=== PATIENT | male | born 1985 | race Hispanic/Latino ===

== ENCOUNTER 2016-08-28 13:11 | Emergency (ER) | payer SELFPAY ==
[2016-08-28] MEDS ORDERED: SUBLIMAZE IV ONE ×2 (13:42→14:45)
[2016-08-28 14:09] LABS: Bacteria,Urine 1+ /HPF (Negative); Bilirubin,Urine NEG (Negative); Blood,Urine LG (Negative); Ketones,Urine NEG (Negative); Leukocyte Esterase,Urine NEG (Negative); Mucus,Urine FEW /HPF; Nitrite,Urine NEG (Negative); Protein,Urine <15 mg/dL mg/dL (Negative); Urobilinogen,Urine < 2.0 mg/dL (<2.0)
[2016-08-28 14:19] LABS: Basophils % (Auto) 0.7 % (0.0-1.8); Eosinophils % (Auto) 5.8 % (0.0-4.3); Hematocrit 44.7 % (35.5-45.6); Mean Corpuscular HGB Conc 34 % (32-34); Mean Corpuscular Hemoglobin 31 pg (28-32); Mean Corpuscular Volume 92 fl (84-94); Platelet Count 215 K/mm3 (140-440); Red Blood Count 4.85 M/mm3 (3.65-5.03); Red Cell Distribution Width 13.4 % (13.2-15.2); White Blood Count 6.8 K/mm3 (4.5-11.0)
[2016-08-28 14:27] LABS: INR 1.05 (0.87-1.13)
[2016-08-28 14:28] LABS: Partial Thromboplastin Time 26.8 Sec. (24.2-36.6)
[2016-08-28 14:38] LABS: Anion Gap 18 mmol/L; BUN/Creatinine Ratio 23.33; Blood Urea Nitrogen 21 mg/dL (9-20); Calcium 8.9 mg/dL (8.4-10.2); Carbon Dioxide 26 mmol/L (22-30); Chloride 98.2 mmol/L (98-107); Glucose 88 mg/dL (75-100); Potassium 4.7 mmol/L (3.6-5.0); Sodium 137 mmol/L (137-145)
--- NOTE | 2016-08-28 14:52 | Cat Scan Report ---
CT ABDOMEN AND PELVIS WITHOUT CONTRAST INDICATION: Flank pain. COMPARISON: None similar at this institution. FINDINGS: Noncontrast abdomen and pelvis CT performed. LUNG BASES: Right hemidiaphragm slightly elevated. Nonspecific distal esophageal wall thickening, not excluded for gastroesophageal reflux and/or hiatal hernia, amongst others. ABDOMEN: Please note that sensitivity to detect small visceral lesions is limited due to the absence of intravenous or oral contrast. However, grossly unremarkable unenhanced liver, spleen, gallbladder, pancreas, adrenals, non-aneurysmal abdominal aorta and the IVC. Left hepatic lobe tip wraps around the spleen in the left upper quadrant. No ascites or size significant adenopathy. Few small, subcentimeter, scattered mesenteric and retroperitoneal lymph nodes noted. Nonopacified GI tract evaluation limited, though grossly nonobstructive. Normal appendix. Mild to moderate colonic stool/possible constipation. Specifically, the kidneys are non-hydronephrotic with preserved contours. A nonobstructing 2 mm right lower renal pole calculus, axial image 169, series 2 noted as also a 1 mm nonobstructing interpolar calculus, axial image 149. Approximately 1.8 cm left lower renal cortical hyperdense/hemorrhagic cyst anteriorly also seen, axial image 164. PELVIS: Moderate to large rectosigmoid stool. Left seminal vesicle calcifications. Small pelvic phleboliths. Urinary bladder suboptimally distended and assessed. No free fluid or size significant adenopathy. No focal aggressive osseous lesions. CONCLUSION: No acute CT abnormality with few incidental findings, including constipation, nonobstructive right nephrolithiasis and a hemorrhagic left renal cyst, as above. Thank you for the opportunity to participate in this patient's care.
[2016-08-28 15:29] VITALS: BP 136/90
[2016-08-28] MEDS ORDERED: DILAUDID IV ONE (16:31)
--- NOTE | 2016-08-28 16:37 | Emergency Department Report ---
HPI - General Chief Complaint: Urogenital-Male Time Seen by Provider: 08/28/16 14:23 - HPI HPI: The patient is a 31-year-old male who presents for evaluation of flank pain. The patient reports 2 days of recurrence of bilateral flank pain, constant since onset, 10/10 in severity, throbbing in quality, and radiating into the lower abdomen. He reports associated hematuria. The patient denies fever, chills, night sweats, diarrhea, blood in the stool, dark tarry stool, dysuria, genital discharge, inability to pass flatus. ED Past Medical Hx - Past Medical History Previous Medical History?: Yes Hx Seizures: Yes Hx Kidney Stones: Yes (chronic) Additional medical history: schizophrenia, PTSD - Surgical History Past Surgical History?: Yes Additional Surgical History: kidney stents, inverted sternum as child, hernia repair. - Social History Smoking Status: Current Every Day Smoker Substance Use Type: Marijuana, Methamphetamines - Medications Home Medications: Home Medications Medication Instructions Recorded Confirmed Last Taken Type HYDROcodone/APAP 7.5-325 [[place] 1 each PO Q8HR PRN #10 tablet 08/28/16 Unknown Rx 7.5-325 mg TAB] Tamsulosin [Flomax] 0.4 mg PO QDAY #20 cap 08/28/16 Unknown Rx ED Review of Systems ROS: Stated complaint: POSS KIDNEY STONES Other details as noted in HPI Constitutional: denies: fever ENT: denies: throat or neck pain Respiratory: denies: cough, shortness of breath Cardiovascular: denies: chest pain Endocrine: denies unexplained weight loss or gain Gastrointestinal: reports abdominal pain, nausea Genitourinary: reports hematuria and flank pain Musculoskeletal: denies: leg swelling Skin: denies: rash Neurological: denies: headache Hematological/Lymphatic: denies: easy bleeding or easy bruising Psych: denies sadness or hopelessness Physical Exam - Physical Exam Vital Signs: Vital Signs 08/28/16 08/28/16 08/28/16 13:18 13:30 13:33 Temperature 98.6 F Pulse Rate 118 H 96 H Respiratory 20 Rate Blood Pressure 123/75 142/83 Blood Pressure [Left] O2 Sat by Pulse 97 97 Oximetry 08/28/16 08/28/16 08/28/16 13:48 14:00 14:30 Temperature Pulse Rate Respiratory 22 Rate Blood Pressure 127/76 127/75 Blood Pressure [Left] O2 Sat by Pulse 98 91 Oximetry 08/28/16 08/28/16 14:50 15:28 Temperature Pulse Rate 101 H Respiratory 20 16 Rate Blood Pressure Blood Pressure 136/90 [Left] O2 Sat by Pulse 98 Oximetry Physical Exam: General: well-nourished, well-developed, no acute distress Head: Normocephalic, atraumatic Eyes: normal sclera ENT: Mucous membranes are pink and moist Neck: trachea midline, neck supple, No neck stiffness, no cervical adenopathy Respiratory: Breath sounds equal bilaterally, no wheezing, rales, or rhonchi Cardio: S1 and S2 present, no murmurs, rubs, gallops, capillary refill is brisk Abdomen: Normoactive bowel sounds, soft abdomen, no rigidity, no guarding or rebound tenderness Chest WALL/Back: No tenderness to palpation of the chest wall, bilateral CVA tenderness with percussion is present Musc: No pitting edema Skin: No rash Neuro: no facial drooping, normal speech Psych: Normal affect ED Course Vital Signs 08/28/16 08/28/16 08/28/16 13:18 13:30 13:33 Temperature 98.6 F Pulse Rate 118 H 96 H Respiratory 20 Rate Blood Pressure 123/75 142/83 Blood Pressure [Left] O2 Sat by Pulse 97 97 Oximetry 08/28/16 08/28/16 08/28/16 13:48 14:00 14:30 Temperature Pulse Rate Respiratory 22 Rate Blood Pressure 127/76 127/75 Blood Pressure [Left] O2 Sat by Pulse 98 91 Oximetry 08/28/16 08/28/16 14:50 15:28 Temperature Pulse Rate 101 H Respiratory 20 16 Rate Blood Pressure Blood Pressure 136/90 [Left] O2 Sat by Pulse 98 Oximetry ED Medical Decision Making - Lab Data Result diagrams: 08/28/16 14:04 08/28/16 14:04 - Medical Decision Making The patient was seen and examined by myself. The patient is placed on a director of cardiac cath lab and continuous pulse ox. On initial evaluation, the patient was found to be in no distress. Evaluation orders are placed. The patient is given an IV dose of fentanyl And Toradol for his pain. Lab results were non- concerning including WBC, hemoglobin, hematocrit, electrolytes, renal function, and urinalysis. CT scan abdomen and pelvis reveals right nephrolithiasis and chronic left renal cyst. The patient was reevaluated and reported that their symptoms were markedly improved at the second dose of IV analgesic. The patient is stable for discharge with outpatient follow-up. The patient is given follow-up and return instructions. The patient expressed understanding and agreed with the plan. The patient is discharged in stable condition. Critical care attestation.: If time is entered above; I have spent that time in minutes in the direct care of this critically ill patient, excluding procedure time. ED Disposition Clinical Impression: Right nephrolithiasis, Renal cyst, acquired, left, Acute flank pain Disposition: DISCHARGED TO HOME OR SELFCARE Is pt being admited?: No Does the pt Need Aspirin: No Condition: Stable Instructions: Kidney Stones (ED) Prescriptions: HYDROcodone/APAP 7.5-325 [[place] 7.5-325 mg TAB] 1 each PO Q8HR PRN #10 tablet PRN Reason: Pain Tamsulosin [Flomax] 0.4 mg PO QDAY #20 cap Referrals: PRIMARY CARE, [Primary Care Provider] - 3-5 Days Time of Disposition: 16:34
== END 2016-08-28 18:28 | disposition home or self-care (01) ==
LOC: ED 13:11
DX: N20.0 Calculus of kidney (principal); N28.1 Cyst of kidney, acquired; R10.9 Unspecified abdominal pain; R56.9 Unspecified convulsions; F15.10 Other stimulant abuse, uncomplicated; F12.10 Cannabis abuse, uncomplicated; F17.200 Nicotine dependence, unspecified, uncomplicated
CPT/HCPCS: 36415; 74176; 80048; 81001; 85025; 85610; 85730; 96374; 96375; 96376; 99285; J1170; J3010

== ENCOUNTER 2016-08-31 12:24 | Emergency (ER) | payer SELFPAY ==
[2016-08-31 13:38] LABS: Basophils % (Auto) 0.8 % (0.0-1.8); Eosinophils % (Auto) 6.4 % (0.0-4.3); Hematocrit 44.9 % (35.5-45.6); Hemoglobin 15.1 gm/dl (11.8-15.2); Mean Corpuscular HGB Conc 34 % (32-34); Mean Corpuscular Hemoglobin 31 pg (28-32); Mean Corpuscular Volume 92 fl (84-94); Platelet Count 207 K/mm3 (140-440); Red Blood Count 4.87 M/mm3 (3.65-5.03); Red Cell Distribution Width 13.1 % (13.2-15.2); White Blood Count 5.7 K/mm3 (4.5-11.0)
[2016-08-31 13:46] LABS: Alanine Aminotransferase 19 units/L (7-56); Albumin/Globulin Ratio 1.5 %; Alkaline Phosphatase 54 units/L (35-129); Anion Gap 16 mmol/L; BUN/Creatinine Ratio 21.42; Bilirubin,Total 0.5 mg/dL (0.1-1.2); Blood Urea Nitrogen 15 mg/dL (9-20); Calcium 8.6 mg/dL (8.4-10.2); Carbon Dioxide 26 mmol/L (22-30); Chloride 100.2 mmol/L (98-107); Glucose 82 mg/dL (75-100); Lipase 16 units/L (13-60); Potassium 4.5 mmol/L (3.6-5.0); Sodium 138 mmol/L (137-145); Total Protein 6.7 g/dL (6.3-8.2)
[2016-08-31 13:53] LABS: Bilirubin,Urine NEG (Negative); Blood,Urine LG (Negative); Ketones,Urine TR mg/dL (Negative); Leukocyte Esterase,Urine NEG (Negative); Mucus,Urine FEW /HPF; Nitrite,Urine NEG (Negative); Urobilinogen,Urine < 2.0 mg/dL (<2.0); WBC,Urine < 1.0 /HPF (0.0-6.0)
[2016-08-31 13:56] LABS: RBC,Urine > 182.0 /HPF (0.0-6.0)
[2016-08-31 16:14] VITALS: BP 131/85
--- NOTE | 2016-08-31 16:29 | Cat Scan Report ---
CT ABDOMEN AND PELVIS WITHOUT CONTRAST INDICATION: Right flank pain, extending to the groin. COMPARISON: 08/28/2016 FINDINGS: Noncontrast abdomen and pelvis CT performed. LUNG BASES: Nonspecific distal esophageal wall thickening, not excluded for gastroesophageal reflux and/or hiatal hernia, amongst others. ABDOMEN: Please note that sensitivity to detect small visceral lesions is limited due to the absence of intravenous or oral contrast. Stable nonobstructing 1 mm right interpolar and a 2 mm right lower renal calculi as also approximately 1.8 cm left lower renal cortical hyperdense/hemorrhagic cyst anteriorly. Left hepatic lobe tip again wraps around the spleen in the left upper quadrant. Right hepatic lobe approximately 19.3 cm in midclavicular length. Otherwise stable abdominal solid organs. Overall lesser colonic stool. Normal appendix. PELVIS: Significant interval clearing of rectosigmoid stool. Slight nonspecific rectal exaggerated wall prominence/thickening with subtle surrounding fat stranding not excluded, axial series 2, images 318-348, amongst others. Left seminal vesicle calcifications, small right hemipelvic phlebolith and urinary bladder appear stable. No free fluid or significant adenopathy. No focal aggressive osseous lesions. CONCLUSION: 1. Significant interval clearing of colonic stool/constipation. Subtle proctitis however not entirely excluded in an appropriate setting. 2. Stable nonobstructing right renal calculi, hemorrhagic left renal cyst and prominent liver, amongst others, as described. Thank you for the opportunity to participate in this patient's care.
[2016-08-31] MEDS ORDERED: TORADOL ONE (16:47)
[2016-08-31] MEDS ORDERED: TORADOL IM ONE (16:53)
--- NOTE | 2016-08-31 16:53 | Emergency Department Report ---
ED Abdominal Pain HPI - General Chief Complaint: Abdominal Pain Stated Complaint: POSS KIDNEY STONES Time Seen by Provider: 08/31/16 15:58 Source: patient Mode of arrival: Ambulatory Limitations: No Limitations - History of Present Illness MD Complaint: abdominal pain -: Gradual, days(s) Location: suprapubic, R flank Radiation: none Migration to: no migration Severity: mild Severity scale (0 -10): 1 Quality: aching Consistency: intermittent Improves With: nothing Worsens With: nothing Associated Symptoms: denies other symptoms - Related Data Previous Rx's Medication Instructions Recorded Last Taken Type HYDROcodone/APAP 7.5-325 [[place] 1 each PO Q8HR PRN #10 tablet 08/28/16 Unknown Rx 7.5-325 mg TAB] Tamsulosin [Flomax] 0.4 mg PO QDAY #20 cap 08/28/16 Unknown Rx Allergies Allergy/AdvReac Type Severity Reaction Status Date / Time Fish Containing Products Allergy Shortness Verified 08/28/16 13:40 of Breath haloperidol [From Haldol] Allergy Angioedema Verified 08/28/16 13:40 haloperidol lactate Allergy Angioedema Verified 08/28/16 13:40 [From Haldol] lorazepam [From Ativan] AdvReac Unknown Verified 08/28/16 13:40 morphine AdvReac Unknown Verified 08/28/16 13:40 ED Review of Systems ROS: Stated complaint: POSS KIDNEY STONES Other details as noted in HPI Comment: All other systems reviewed and negative ED Past Medical Hx - Past Medical History Hx Seizures: Yes Hx Kidney Stones: Yes (chronic) Additional medical history: schizophrenia, PTSD - Surgical History Additional Surgical History: kidney stents, inverted sternum as child, hernia repair. - Social History Smoking Status: Current Every Day Smoker Substance Use Type: None - Medications Home Medications: Home Medications Medication Instructions Recorded Confirmed Last Taken Type HYDROcodone/APAP 7.5-325 [[place] 1 each PO Q8HR PRN #10 tablet 08/28/16 Unknown Rx 7.5-325 mg TAB] Tamsulosin [Flomax] 0.4 mg PO QDAY #20 cap 08/28/16 Unknown Rx ED Physical Exam - Other Other exam information: GENERAL: Patient in no acute distress HEAD: Normocephalic, atraumatic EYES: PERRLA, EOM intact, no scleral icterus, no papilledema, no conjunctival hemorrhage, visual hernandez and acuity wnl, NOSE: No tenderness, discharge, sinus tenderness MOUTH: No erythema, bleeding, exudate HEART: Regular rate and rhythm, no murmur, S1-S2 are auscultated, pulses are symmetric LUNGS: No wheezing, rales, rhonchi, bilateral breath sounds ABDOMEN: Normal bowel sounds, no tenderness, no rebound, no guarding, no masses , no CVA tenderness MUSCULOSKELETAL: Normal joint range of motion, no redness, no swelling, no tenderness NEUROLOGIC: GCS 15, Alert and Oriented x3, Cranial nerves intact, normal sensation, normal strength, normal gait, no cerebellar deficit PSYCHIATRIC: No homicidal or suicidal ideation, no anxiety, no depression, no hallucinations SKIN: Skin is warm and dry, no wounds, no rashes GENITOURINARY: Male: No rashes, ulcers, discharge, no scrotal masses, no hernia ED Course Vital Signs 08/31/16 08/31/16 08/31/16 12:51 15:32 15:40 Temperature 98.1 F Pulse Rate 112 H Respiratory 20 Rate Blood Pressure 137/88 131/85 O2 Sat by Pulse 100 97 Oximetry 08/31/16 15:46 Temperature Pulse Rate 87 Respiratory 24 Rate Blood Pressure 131/85 O2 Sat by Pulse 96 Oximetry ED Medical Decision Making - Lab Data Result diagrams: 08/31/16 13:02 08/31/16 13:02 - Radiology Data Radiology results: report reviewed - Medical Decision Making Patient comfortable. Updated with results. Plan discharge with outpatient follow-up. Patient agrees with plan and will return if symptoms worsen. Critical care attestation.: If time is entered above; I have spent that time in minutes in the direct care of this critically ill patient, excluding procedure time. ED Disposition Clinical Impression: Abdominal pain Qualifiers: Abdominal location: unspecified location Qualified Code(s): R10.9 - Unspecified abdominal pain Disposition: DISCHARGED TO HOME OR SELFCARE Is pt being admited?: No Condition: Stable Instructions: Abdominal Pain (ED) Referrals: PRIMARY CARE, [Primary Care Provider] - 2-3 Days JYOTI MARY MD [Staff Physician] - 2-3 Days Time of Disposition: 16:52
== END 2016-08-31 17:30 | disposition home or self-care (01) ==
LOC: ED 12:24
DX: R10.30 Lower abdominal pain, unspecified (principal); R56.9 Unspecified convulsions; F20.9 Schizophrenia, unspecified; F43.10 Post-traumatic stress disorder, unspecified; F17.200 Nicotine dependence, unspecified, uncomplicated
CPT/HCPCS: 36415; 74176; 80053; 81001; 83690; 85025; 96372; 99284; J1885